=== PATIENT | female | born 1990 | race African-American/Black ===

== ENCOUNTER 2016-11-20 11:40 | Emergency (ER) | payer SELFPAY ==
[~2016-11-20] VITALS: Ht 180.3 cm; Wt 100.0 kg
[~2016-11-20 11:40] MED LIST: DICL75TA PO; ROBA750T PO
[2016-11-20 11:41] VITALS: BP 146/83; PULSE 80; RESP 20; TEMP 98.1; O2SAT 98
== END 2016-11-20 12:55 | disposition left against medical advice (07) ==
LOC: NED 11:40
DX: L02.224 Furuncle of groin (principal)
CPT/HCPCS: 99281

== ENCOUNTER 2017-06-15 18:18 | Emergency (ER) | payer SELFPAY ==
[~2017-06-15] VITALS: Ht 180.3 cm; Wt 150.0 kg
[2017-06-15 18:21] VITALS: BP 192/105; PULSE 73; RESP 14; TEMP 99.1; O2SAT 99
[2017-06-15 18:40] VITALS: BP 185/109; PULSE 67; RESP 18; O2SAT 100
[2017-06-15 18:47] VITALS: BP 146/85
--- NOTE | 2017-06-15 18:54 | PD ---
HPI . dizziness and nausea for over a year Chief Complaint: Dizziness Time Seen by Provider: 18:53 Travel History International Travel<30 days: No Contact w/Intl Traveler<30days: No Traveled to known affect area: No History of Present Illness HPI 27 yr old female here with c/o nausea and dizziness for over 1 year. She says she has been ignoring it, but for the past 2 weeks it has been a little more prominent than before. She tells me she became worried today when she was looking at the computer screen and suddenly felt a little dyslexic. She tells me she has family members with high blood pressure and aneurysms and was concerned. She would like to be checked out. She has not seen a doctor in years. She sometimes has SOB, but not today. She denies any chance of . PFSH Past Medical History Medical History: Denies Significant Hx Asthma: Yes Respiratory: Yes (BRONCHITIS ) Immunizations Current: No Tetanus Vaccination: > 5 Years Influenza Vaccination: No ?: Unknown : 0 Past Surgical History Surgical History: No Previous Surgery Social History Alcohol Use: No Tobacco Use: Yes Substance Use: No Allergies-Medications (Allergen,Severity, Reaction): Uncoded Allergies: shell fish (Allergy, Intermediate, Swelling, 06/15/17) Reported Meds & Prescriptions Reported Meds & Active Scripts Active No Active Prescriptions or Reported Medications Review of Systems General / Constitutional: No: Fever Eyes: No: Visual changes HENT: No: Headaches Cardiovascular: No: Chest Pain or Discomfort Respiratory: No: Shortness of Breath Gastrointestinal: Positive: Nausea, No: Abdominal Pain Genitourinary: No: Dysuria Musculoskeletal: No: Pain Skin: No Rash Neurologic: Positive: Dizziness, No: Weakness Psychiatric: No: Depression Endocrine: No: Polydipsia Hematologic/Lymphatic: No: Easy Bruising Physical Exam Narrative GENERAL: AAO x 3, no acute distress, Well-nourished, well-developed patient, obese SKIN: Warm and dry. No visible rashes or bruising. HEAD: Normocephalic and atraumatic. EYES: No scleral icterus. No injection or drainage. EOM intact, PERRLA, + photophobia only with otoscope light, lights on in exam room and patient has no sensitivity, ENT: No nasal drainage noted. Mucous membranes pink. Airway patent. NECK: Supple, trachea midline. No JVD. CARDIOVASCULAR: Regular rate and rhythm without murmurs, gallops, or rubs. RESPIRATORY: Breath sounds equal bilaterally. No accessory muscle use. No rhonchi or rales. GASTROINTESTINAL: Abdomen soft, non-tender, nondistended. no rebound or guarding EXTREMITIES: No cyanosis or edema. BACK: No obvious deformity. No CVA tenderness. NEURO: CN II-12 intact, sales administrator strength normal b/l, UE and LE 5/5, no focal deficits, negative pronator drift. sensory and motor function normal PSYCH: AAO x 3, normal affect. Data Data Last Documented VS Vital Signs Date Time Temp Pulse Resp B/P (MAP) Pulse Ox O2 Delivery O2 Flow Rate FiO2 06/15/17 18:47 15 06/15/17 18:47 146/85 (105) 06/15/17 18:40 67 100 Room Air 06/15/17 18:21 99.1 Orders Orders Complete Blood Count With Diff (06/15/17 19:04) Basic Metabolic Panel (Bmp) (06/15/17 19:04) Ct Brain W/O Iv Contrast(Rout) (06/15/17 19:04) Ecg Monitoring (06/15/17 19:04) Iv Access Insert/Monitor (06/15/17 19:04) Oximetry (06/15/17 19:04) Sodium Chloride 0.9% Flush (Ns Flush) (06/15/17 19:15) Ed Urine Pregnancytest Poc (06/15/17 19:04) Electrocardiogram (06/15/17 ) Labs Laboratory Tests Test 06/15/17 19:40 White Blood Count 9.4 TH/MM3 Red Blood Count 4.03 MIL/MM3 Hemoglobin 10.6 GM/DL Hematocrit 33.7 % Mean Corpuscular Volume 83.5 FL Mean Corpuscular Hemoglobin 26.3 PG Mean Corpuscular Hemoglobin Concent 31.5 % Red Cell Distribution Width 17.5 % Platelet Count 430 TH/MM3 Mean Platelet Volume 8.4 FL Neutrophils (%) (Auto) 56.6 % Lymphocytes (%) (Auto) 35.5 % Monocytes (%) (Auto) 4.6 % Eosinophils (%) (Auto) 2.6 % Basophils (%) (Auto) 0.7 % Neutrophils # (Auto) 5.3 TH/MM3 Lymphocytes # (Auto) 3.3 TH/MM3 Monocytes # (Auto) 0.4 TH/MM3 Eosinophils # (Auto) 0.2 TH/MM3 Basophils # (Auto) 0.1 TH/MM3 CBC Comment DIFF FINAL Differential Comment MDM Medical Decision Making Medical Screen Exam Complete: Yes Emergency Medical Condition: Yes Medical Record Reviewed: Yes Differential Diagnosis vertigo, DM, less likely brain tumor, thyroid disorder, arrhythmia Narrative Course 27 yr old female here with dizziness and nausea. I have ordered, labs, EKG, ED preg, and CT brain. I explained to patient that she will need to see a PCP for a more detailed workup. She was understanding. CT of the brain normal. I have discussed the case with my attending Dr. Gandhi. She will determine patient' s disposition. Scripts No Active Prescriptions or Reported Meds Condition: Eve Huitron Jun 15, 2017 18:54
[2017-06-15] MEDS ORDERED: SODIUM CHLORIDE 0.9% FLUSH 10 ML FLUSH IVF PRN (19:15)
[2017-06-15 20:27] LABS: AUTOMATED NEUTROPHIL # 5.3 TH/MM3 (1.8-7.7); BASOPHIL # 0.1 TH/MM3 (0-0.2); BASOPHIL % 0.7 % (0.0-2.0); EOSINOPHIL # 0.2 TH/MM3 (0-0.4); EOSINOPHIL % 2.6 % (0.0-4.0); HEMATOCRIT 33.7 % (35.0-46.0); HEMO FLAGS DIFF FINAL; LYMPH % 35.5 % (9.0-44.0); LYMPHOCYTE # 3.3 TH/MM3 (1.0-4.8); MEAN CELL VOLUME 83.5 FL (80.0-100.0); MEAN CORPUSCULAR HEMOGLOBIN 26.3 PG (27.0-34.0); MEAN CORPUSCULAR HGB CONC 31.5 % (32.0-36.0); MONO % 4.6 % (0.0-8.0); NEUT % 56.6 % (16.0-70.0); PLATELET COUNT 430 TH/MM3 (150-450); RED BLOOD COUNT 4.03 MIL/MM3 (4.00-5.30); RED CELL DISTRIBUTION WIDTH 17.5 % (11.6-17.2); WHITE BLOOD COUNT 9.4 TH/MM3 (4.0-11.0)
--- NOTE | 2017-06-15 20:27 | RADRPT ---
EXAM DATE/TIME: 06/15/2017 20:15 [facility] COMPARISON: CT BRAIN W/O CONTRAST, July 27, 2016, 10:29. INDICATIONS : Headache along with dizziness and blurry vision. RADIATION DOSE: 39.76 CTDIvol (mGy) MEDICAL HISTORY : None SURGICAL HISTORY : None. ENCOUNTER: Initial ACUITY: 1 day PAIN SCALE: 8/10 LOCATION: cranial TECHNIQUE: Multiple contiguous axial images were obtained of the head. Using automated exposure control and adj ustment of the mA and/or kV according to patient size, radiation dose was kept as low as reasonably a chievable to obtain optimal diagnostic quality images. DICOM format image data is available electro nically for review and comparison. FINDINGS: CEREBRUM: The ventricles are normal for age. No evidence of midline shift, mass lesion, hemorrhage or acute in farction. No extra-axial fluid collections are seen. POSTERIOR FOSSA: The cerebellum and brainstem are intact. The 4th ventricle is midline. The cerebellopontine angle i s unremarkable. EXTRACRANIAL: The visualized portion of the orbits is intact. SKULL: The calvaria is intact. No evidence of skull fracture. CONCLUSION: Negative noncontrast head CT. Aniceto Tellez MD on June 15, 2017 at 20:25 Board Certified Radiologist. This report was verified electronically.
[2017-06-15 20:39] LABS: BICARBONATE 27.7 MEQ/L (21.0-32.0); POTASSIUM 3.2 MEQ/L (3.5-5.1)
[2017-06-15] MEDS ORDERED: KETOROLAC TROMETHAMINE 30 MG/ML (IVP) VIAL IV PUSH ONE (21:00)
[2017-06-15] MEDS ORDERED: POTASSIUM CHLORIDE 20 MEQ CONTROLLED RELEASE TAB PO ONE (21:00)
[2017-06-15] MEDS ORDERED: ONDANSETRON HCL 4 MG/2 ML VIAL IV PUSH ONE (21:00)
--- NOTE | 2017-06-15 21:00 | PD ---
Physical Exam Narrative I, Dr. Gandhi, have reviewed the advance practice practitioner's documentation and am in agreement, met with the patient face to face, made the diagnosis, and the medical decision making was done by me. *My assessment and Findings: Anxiety vs. migraine headache 27yo F well appearing female here with multiple complaints. States she has been having headache and dizziness for a year. Pt is very concern about it because she had there is family history of brain aneurysm. States she usually takes exedrin but did not today because she wants to find out what's wrong. Headache is associated with photophobia and nausea. No focal neurologic deficits on exam. Pt is on her phone in no distress. Labs reviewed, no leukocytosis. H/H low at 10.6/33.7. Pt denies any bleeding, will have pt follow up with PMD. Mild hypokalemia at 3.2, replaced orally. CT brain negative. Pt given toradol and zofran for headache. Pt reevaluated at bedside and headache resolved. Return precautions given. Data Data Last Documented VS Vital Signs Date Time Temp Pulse Resp B/P (MAP) Pulse Ox O2 Delivery O2 Flow Rate FiO2 06/15/17 18:47 15 06/15/17 18:47 146/85 (105) 06/15/17 18:40 67 100 Room Air 06/15/17 18:21 99.1 Orders Orders Complete Blood Count With Diff (06/15/17 19:04) Basic Metabolic Panel (Bmp) (06/15/17 19:04) Ct Brain W/O Iv Contrast(Rout) (06/15/17 19:04) Ecg Monitoring (06/15/17 19:04) Iv Access Insert/Monitor (06/15/17 19:04) Oximetry (06/15/17 19:04) Sodium Chloride 0.9% Flush (Ns Flush) (06/15/17 19:15) Ed Urine Pregnancytest Poc (06/15/17 19:04) Electrocardiogram (06/15/17 ) Ketorolac Inj (Toradol Inj) (06/15/17 21:00) Ondansetron Inj (Zofran Inj) (06/15/17 21:00) Potassium Chloride (Kcl) (06/15/17 21:00) Labs Laboratory Tests Test 06/15/17 19:40 White Blood Count 9.4 TH/MM3 Red Blood Count 4.03 MIL/MM3 Hemoglobin 10.6 GM/DL Hematocrit 33.7 % Mean Corpuscular Volume 83.5 FL Mean Corpuscular Hemoglobin 26.3 PG Mean Corpuscular Hemoglobin Concent 31.5 % Red Cell Distribution Width 17.5 % Platelet Count 430 TH/MM3 Mean Platelet Volume 8.4 FL Neutrophils (%) (Auto) 56.6 % Lymphocytes (%) (Auto) 35.5 % Monocytes (%) (Auto) 4.6 % Eosinophils (%) (Auto) 2.6 % Basophils (%) (Auto) 0.7 % Neutrophils # (Auto) 5.3 TH/MM3 Lymphocytes # (Auto) 3.3 TH/MM3 Monocytes # (Auto) 0.4 TH/MM3 Eosinophils # (Auto) 0.2 TH/MM3 Basophils # (Auto) 0.1 TH/MM3 CBC Comment DIFF FINAL Differential Comment Blood Urea Nitrogen 5 MG/DL Creatinine 0.69 MG/DL Random Glucose 76 MG/DL Calcium Level 9.2 MG/DL Sodium Level 138 MEQ/L Potassium Level 3.2 MEQ/L Chloride Level 102 MEQ/L Carbon Dioxide Level 27.7 MEQ/L Anion Gap 8 MEQ/L Estimat Glomerular Filtration Rate 124 ML/MIN MDM Supervised Visit with KRISTAL: Yes Interpretation(s) EKG: Sinus bradycardia at 59bpm. Normal axis. No ST segment elevation or depression. Diagnosis Primary Impression: Headache Qualified Codes: R51 - Headache Patient Instructions: General Instructions Departure Forms: Tests/Procedures Additional Instruction: Please follow up with your primary care physician in 3-7 days. Return to the ED if symptoms worsen. Med/Other Pt SpecificInfo: Prescription(s) given Scripts Acetaminophen (Tylenol) 325 Mg Tab 650 MG PO Q6H Y for PAIN SCALE 1 TO 4, #20 TAB 0 Refills Prov: Gloria Gandhi 06/15/17 Disposition: 01 DISCHARGE HOME Condition: Stable Gloria Gandhi Jun 15, 2017 21:00
[2017-06-15] MEDS ORDERED: TYLE325T PO (21:34)
[2017-06-15 22:25] VITALS: BP 124/78
--- NOTE | 2017-06-16 15:04 | EKG ---
Date Performed: 06/15/2017 Time Performed: 19:46:50 PTAGE: 27 years EKG: SINUS BRADYCARDIA BORDERLINE ECG NO PREVIOUS TRACING DOCTOR: Vinita Horton Interpretating Date/Time 06/16/2017 15:04:03
== END 2017-06-15 22:26 | disposition home or self-care (01) ==
LOC: NEPD 18:18
DX: R51 Headache (principal); R42 Dizziness and giddiness; R00.0 Tachycardia, unspecified; J45.909 Unspecified asthma, uncomplicated
CPT/HCPCS: 70450; 80048; 84703; 85025; 93005; 96374; 96375; 99285; J1885; J2405

== ENCOUNTER 2017-07-27 08:37 | Emergency (ER) | payer SELFPAY ==
[~2017-07-27] VITALS: Ht 180.3 cm; Wt 105.0 kg
[~2017-07-27 08:37] MED LIST changes: -DICL75TA PO; -ROBA750T PO; +TYLE325T PO
[2017-07-27 08:39] VITALS: BP 177/98; PULSE 62; RESP 16; TEMP 98.5; O2SAT 98
[2017-07-27] MEDS ORDERED: TETANUS/DIPHTHERIA TOXOID ADULT 0.5 ML VIAL IM ONE (10:30)
--- NOTE | 2017-07-27 11:10 | PD ---
HPI . Laceration Chief Complaint: Laceration/Skin Injury Time Seen by Provider: 10:10 Travel History International Travel<30 days: No Contact w/Intl Traveler<30days: No Traveled to known affect area: No History of Present Illness HPI 27-year-old female presents emergency department for evaluation after getting hit in the head with a block this morning at approximately 7 AM. Patient states the block fell off of a shelf and hit her left eyebrow. Patient denies losing consciousness during this event. Patient has a 1 cm laceration in a vertical orientation on the medial aspect of her left eyebrow. Patient denies any major medical history. Patient doesn't take any daily medication. PFSH Past Medical History Asthma: Yes Respiratory: Yes (BRONCHITIS ) Immunizations Current: No ?: Not LMP: 07/26/17 : 0 Social History Alcohol Use: No Tobacco Use: Yes Substance Use: No Allergies-Medications (Allergen,Severity, Reaction): Uncoded Allergies: shell fish (Allergy, Intermediate, Swelling, 06/15/17) Reported Meds & Prescriptions Reported Meds & Active Scripts Active Tylenol (Acetaminophen) 325 Mg Tab 650 Mg PO Q6H PRN Review of Systems Except as stated in HPI: all other systems reviewed are Neg Physical Exam Narrative GENERAL: Well-nourished, well-developed 27-year-old female patient in no acute distress. Nontoxic appearing. SKIN: 1 cm laceration to the medial aspect of the left eyebrow. HEAD: Normocephalic. Atraumatic. NEUROLOGICAL: Awake and alert. Cranial nerves II through XII intact. Motor and sensory grossly within normal limits. Five out of 5 muscle strength in all muscle groups. Normal speech. EYES: No scleral icterus. No injection or drainage. NECK: Supple, trachea midline. No JVD or lymphadenopathy. CARDIOVASCULAR: Regular rate and rhythm without murmurs, gallops, or rubs. RESPIRATORY: Breath sounds equal bilaterally. No accessory muscle use. MUSCULOSKELETAL: No cyanosis, or edema. Data Data Last Documented VS Vital Signs Date Time Temp Pulse Resp B/P (MAP) Pulse Ox O2 Delivery O2 Flow Rate FiO2 07/27/17 11:20 07/27/17 08:39 98.5 62 16 98 Orders Orders Tetanus/Diphtheria Tox Adult (Tetanus/Di (07/27/17 10:30) Ed Discharge Order (07/27/17 11:10) [facility] Medical Decision Making Medical Screen Exam Complete: Yes Emergency Medical Condition: Yes Differential Diagnosis Differential diagnoses include but are not limited to laceration, cellulitis, head injury Narrative Course 27-year-old female presents emergency department for evaluation of a laceration she sustained to her left eyebrow this morning when a block fell from a shelf. Patient denies losing consciousness. Patient denies any headache. Patient is neurologically intact. Patient is unsure if she is up-to-date on her tetanus. Patient's tetanus updated during this visit. Patient doesn't have any major medical history and doesn't take any daily medication. Laceration repaired with Dermabond after being cleaned thoroughly with Betadine and normal saline. Patient is discharged home with instructions to keep the wound clean and dry and return to the emergency Department with any worsening condition but otherwise follow up with her primary care. Diagnosis Primary Impression: Superficial laceration of face Referrals: Primary Care Physician Patient Instructions: General Instructions, Laceration (DC) Additional Instructions: Please return to emergency department if your symptoms return or worsen. Follow up with your primary care provider. Keep wound clean and dry. Disposition: 01 DISCHARGE HOME Condition: Stable Cecilia Soliman Jul 27, 2017 11:10
== END 2017-07-27 11:21 | disposition home or self-care (01) ==
LOC: NEPA 08:37
DX: S01.112A Laceration without foreign body of left eyelid and periocular area, initial encounter (principal); W22.8XXA Striking against or struck by other objects, initial encounter; Z23 Encounter for immunization
CPT/HCPCS: 12011; 90471; 90714